=== PATIENT | male | born 1965 | race Caucasian/White ===

== ENCOUNTER 2023-06-14 09:07 | Outpatient (CLI) | payer BC, SELFPAY | END 2023-06-14 09:08 | disposition home or self-care (01) | PROVIDERS: PCP Family Medicine; Visit Provider Family Medicine | DX: Z00.00 Encounter for general adult medical examination without abnormal findings (principal); E78.5 Hyperlipidemia, unspecified; Z13.1 Encounter for screening for diabetes mellitus; Z12.5 Encounter for screening for malignant neoplasm of prostate | CPT/HCPCS: 80048; 80061; 84153 ==

== ENCOUNTER 2023-11-20 07:51 | Outpatient (CLI) | payer BC, SELFPAY ==
--- NOTE | 2023-11-20 09:46 | W.ANESCHARGE ---
Anesthesia Charges Start Date/Time Anesthesia Start Date: 11/20/23 Anesthesia Start Time: 09:15 Stop Date/Time Anesthesia Stop Date: 11/20/23 Anesthesia Stop Time: 09:52
--- NOTE | 2023-11-20 09:53 | W.ANESCHARGE ---
Anesthesia Charges Start Date/Time Anesthesia Start Date: 11/20/23 Anesthesia Start Time: 09:15 Stop Date/Time Anesthesia Stop Date: 11/20/23 Anesthesia Stop Time: 09:52
== END 2023-11-20 07:52 | disposition home or self-care (01) ==
LOC: OP CLINIC 07:51
PROVIDERS: PCP Family Medicine; Visit Provider Surgery
DX: Z12.11 Encounter for screening for malignant neoplasm of colon (principal); K63.5 Polyp of colon; K57.30 Diverticulosis of large intestine without perforation or abscess without bleeding; K64.8 Other hemorrhoids; Z86.010 Personal history of colon polyps
CPT/HCPCS: 00811; 45385; 88305; J2704

== ENCOUNTER 2024-05-09 15:21 | Outpatient (CLI) | payer BC, SELFPAY ==
[2024-05-09 15:49] LABS: Creatinine* 0.9 mg/dL (0.5-1.5); Estimated Glomerular Filt Rate 97 ml/min
--- NOTE | 2024-05-09 16:00 | CRLHL7_ITS ---
For Patients: As a result of the Century Cures Act, medical imaging exams and procedure reports are released immediately into your electronic medical record. You may view this report before your referring provider. If you have questions, please contact your health care provider. INDICATION: DYSPHAGIA, SOB COMPARISON: none TECHNIQUE: CT ST Neck W/ 114CC ISOVUE 370 Please note that all CT scans at this facility use dose modulation, iterative reconstruction, and/or weight-based dosing when appropriate to reduce radiation dose to as low as reasonably achievable. FINDINGS: Motion artifact is present within the visualized lungs without consolidative density. The thyroid gland is unremarkable. No upper mediastinal adenopathy. The visualized brain parenchyma is normal. Normal orbits. The styloid processes somewhat elongated on the right. Dystrophic calcification within the palatine tonsils bilaterally, measuring 12 millimeters on the right and 5 millimeters on the left. Normal vallecula and piriform sinuses. The soft palate is normal. Normal retropharyngeal soft tissues. The epiglottis is unremarkable. Salivary glands are unremarkable with normal variant anatomy of the left submandibular gland at the anterior inferior aspect. No enlarged lymph nodes. Disc space narrowing and spurring C5-6. No fracture. Sinuses clear. IMPRESSION: Calcification within the palatine tonsils bilaterally representing sequela of prior tonsillar inflammation. No acute inflammation on the current study. No adenopathy. 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 Please note that all CT scans at this facility use dose modulation, iterative reconstruction, and/or weight-based dosing when appropriate to reduce radiation dose to as low as reasonably achievable. Dictated by Vishnu Mckeon MD @ 05/10/2024 10:28:13 AM (Electronically Signed)
== END 2024-05-09 15:22 | disposition home or self-care (01) ==
LOC: CT 15:22
PROVIDERS: PCP Family Medicine; Visit Provider Otolaryngology
DX: R13.10 Dysphagia, unspecified (principal)
CPT/HCPCS: 36415; 70491; 82565; Q9967

== ENCOUNTER 2024-05-20 12:00 | Outpatient (CLI) | payer BC, SELFPAY ==
--- NOTE | 2024-06-10 09:04 | W.PM.SLEEP ---
Sleep Study Details Details Interpreting Provider: Margarita Date of Sleep Study: 05/20/24 Sleep Study Details: STUDY TYPE:? Home unattended ? BMI:? 31.4 ORDERING PROVIDER:Dillon Brooke INDICATION:? Concerns about sleep apnea ? SLEEP SUMMARY:? 529 minutes monitored RESPIRATORY SUMMARY:? AHI 10.7, low oxygen 80, 52.5% of study oxygen less than 90%, snoring 99.6% PERIODIC LIMB MOVEMENTS OF SLEEP:? Not recorded CARDIAC:? 52-95 beats per minute, mean 65.7 beats per minute IMPRESSION:? Mild obstructive sleep apnea but with significant hypo oxygenation. RECOMMENDATION: Would recommend treatment of the sleep apnea with CPAP and then follow-up with an overnight oximetry study.
== END 2024-05-20 12:01 | disposition home or self-care (01) ==
LOC: SLEEP 05-27 12:47
PROVIDERS: PCP Family Medicine; Visit Provider Otolaryngology
DX: G47.33 Obstructive sleep apnea (adult) (pediatric) (principal)
CPT/HCPCS: 95806

== ENCOUNTER 2024-06-18 14:35 | Outpatient (CLI) | payer BC, SELFPAY ==
[2024-06-18 16:02] VITALS: BP 172/76; PULSE 100; RESP 18
--- NOTE | 2024-06-18 16:12 | P.STN_ITS ---
Stress Test Note Date Date of test: 06/18/24 Providers Primary care provider: Bishop Mancera Stress test physician: Jimmy Munoz Stress Test Note Stress test ordered: Stress Echo Indication for test: chest pain Results discussion: patient is a very nice 59-year-old gentleman who presents here for evaluation of chest pain, test ordered is a stress echo, cardiac stress test medical history report is reviewed, I discussed with him the risks benefits and side effects of the test, would like to go forward with this. Pretest EKG shows n ormal sinus rhythm, ventricular rate 64 blood pressure 141/78, no acute changes are noted. Standard Vladimir protocol is employed over a time course of 8 minutes 38 seconds, achieved a metabolic equivalent 9.7 Mets, maximum heart rate was 158, which is 117% of the maximum, test is terminated because of fulfillment of protocol, and fatigue. He did not develop any chest pain review of the tracing showed no changes suggestive of ischemic heart disease, very small amount of depression is noted inferiorly of 1.5 mm. this is indeterminate Impression: negative electrographic portion of stress echo, inducement of fatigue Follow up suggested: await echo images, clinical correlation with this will be needed, cardiology will review patient recovered well there were no complications and will be discharged.
== END 2024-06-18 16:00 | disposition home or self-care (01) ==
LOC: STRESS 14:36
PROVIDERS: PCP Family Medicine; Visit Provider Family Medicine
DX: R07.89 Other chest pain (principal); R53.83 Other fatigue
CPT/HCPCS: 93016; 93325; 93351

== ENCOUNTER 2024-08-09 09:54 | Outpatient (CLI) | payer BC, SELFPAY | END 2024-08-09 09:55 | disposition home or self-care (01) | LOC: NFLDREF 08-12 05:53 | PROVIDERS: PCP Family Medicine; Referring Provider Family Medicine; Visit Provider Family Medicine | DX: E78.5 Hyperlipidemia, unspecified (principal); I10 Essential (primary) hypertension | CPT/HCPCS: 80048; 80061 ==

== ENCOUNTER 2025-02-17 14:08 | Outpatient (CLI) | payer BC, SELFPAY | END 2025-02-17 14:09 | disposition home or self-care (01) | PROVIDERS: PCP Family Medicine; Visit Provider Family Medicine | DX: Z00.00 Encounter for general adult medical examination without abnormal findings (principal); E78.2 Mixed hyperlipidemia; I10 Essential (primary) hypertension; Z12.5 Encounter for screening for malignant neoplasm of prostate | CPT/HCPCS: 80048; 80061; G0103 ==